=== PATIENT | female | born 1970 | race Caucasian/White ===

== ENCOUNTER 2018-06-05 13:43 | Outpatient (CLI) | payer BC, MEDICARE ==
--- NOTE | 2018-06-05 14:22 | MMO ---
Bilateral MAMMO Bilat Screen [facility]. CLINICAL HISTORY: Patient is 47 years old and is seen for screening. The patient has the following family history of breast cancer: mother, at age 58 and sister, at age 57. The patient has a history of melanoma in April,. The patient has a history of bilateral mastopexy in October, - benign. VIEWS: The views performed were: bilateral craniocaudal with tomosynthesis and bilateral mediolateral oblique with tomosynthesis. FILMS COMPARED: The present examination has been compared to prior imaging studies performed at [facility] on 09/20/2005, 11/21/2012, 07/13/2014, 09/06/2015 and 10/05/2016. MAMMOGRAM FINDINGS: There are scattered fibroglandular densities. There are no suspicious masses, suspicious calcifications, or new areas of architectural distortion. IMPRESSION: THERE IS NO MAMMOGRAPHIC EVIDENCE OF MALIGNANCY. A ROUTINE FOLLOW-UP MAMMOGRAM IN 1 YEAR IS RECOMMENDED. THE RESULTS OF THIS EXAM WERE SENT TO THE PATIENT. ACR BI-RADS Category 1 - Negative MAMMOGRAPHY NOTE: 1. A negative mammogram report should not delay a biopsy if a dominant of clinically suspicious mass is present. 2. Approximately 10% to 15% of breast cancers are not detected by mammography. 3. Adenosis and dense breasts may obscure an underlying neoplasm.
== END 2018-06-05 13:44 | disposition home or self-care (01) ==
LOC: BICMAMMO 13:43
PROVIDERS: ATTEND Student in an Organized Health Care Education/Training Program
DX: Z12.31 Encounter for screening mammogram for malignant neoplasm of breast (principal); Z80.3 Family history of malignant neoplasm of breast; Z85.820 Personal history of malignant melanoma of skin; Z98.890 Other specified postprocedural states
CPT/HCPCS: 77063; 77067

== ENCOUNTER 2018-06-16 10:43 | Outpatient (CLI) | payer BC, MEDICARE ==
--- NOTE | 2018-06-16 13:49 | CT ---
CT Abdomen Pelvis W WO con: 06/16/2018 12:00 AM CLINICAL HISTORY: Chronic cystitis as a child. TECHNIQUE: Multiple contiguous axial images were obtained and a CT of the abdomen and pelvis without and with IV contrast. Postcontrast images were obtained in the nephrographic and excretory phases. Sagittal and coronal reformats were performed. COMPARISON: None. FINDINGS: Kidneys and Urinary Tract: Right kidney and ureter: No calculi. No hydronephrosis or hydroureter. No renal mass or other lesions . No urothelial lesions: no filling defect, dilation, stricture or wall thickening. Left kidney and ureter: No calculi. No hydronephrosis or hydroureter. No renal mass or other lesions. No urothelial lesions: no filling defect, dilation, stricture or wall thickening. Urinary bladder: Normal, no calculi, mass or other lesions. Remainder of Abdomen and Pelvis: Liver: Normal. Gallbladder and biliary system: Status post cholecystectomy. Enlargement of the common bile duct is l ikely a reservoir effect from prior cholecystectomy. Spleen: Normal. Pancreas: Normal. Adrenal glands: Normal. GI tract: Postsurgical changes are seen in the stomach. No biliary dilatation. Abdominal aorta and its major branches: Normal. No aneurysm. Peritoneum/retroperitoneum: Normal. No ascites. No adenopathy. Pelvic structures: The reproductive organs are unremarkable. No pelvic lymphadenopathy. Body wall and musculoskeletal: Normal. Visualized lower thorax: Normal. No pulmonary parenchymal mass or pleural effusion. IMPRESSION: Negative CT Urogram. No etiology identified for hematuria.
== END 2018-06-16 10:44 | disposition home or self-care (01) ==
LOC: SCSCT 10:43
PROVIDERS: ATTEND Urology
DX: N39.0 Urinary tract infection, site not specified (principal)
CPT/HCPCS: 74178

== ENCOUNTER 2019-04-03 08:58 | Outpatient (CLI) | payer BC, MEDICARE ==
--- NOTE | 2019-04-03 10:24 | BD ---
DEXA BONE DENSITY STUDY: Date: 04/03/2019 HISTORY: 48-year-old postmenopausal female for screening for osteoporosis. FINDINGS: Lumbar Spine: BMD (g/cm2) L1 0.745 T-Score: -2.2 L2 0.860 T-Score: -1.5 L3 0.875 T-Score: -1.9 L4 0.809 T-Score: -2.3 L1-L4 0.826 T-Score: -2.0 Femoral Neck: 0.683 T-Score: -1.5 Total Femur: 0.839 T-Score: -0.8 IMPRESSION: Osteopenia. This patient has a 10 year WHO fracture risk for a major osteoporotic fracture of 5.1% an d for a hip fracture of 0.5%. POS: CET
== END 2019-04-03 08:59 | disposition home or self-care (01) ==
LOC: BICMAMMO 08:58
PROVIDERS: ATTEND Internal Medicine Endocrinology, Diabetes & Metabolism
DX: M81.0 Age-related osteoporosis without current pathological fracture (principal); M85.89 Other specified disorders of bone density and structure, multiple sites
CPT/HCPCS: 77080